=== PATIENT | female | born 1935 | race Caucasian/White ===

== ENCOUNTER 2017-07-26 21:10 | Observation (INO) ==
[2017-07-26] MEDS ORDERED: IOPAMIDOL 100 ML BOTTLE IV ONE (21:11)
[2017-07-26] MEDS ORDERED: ASPIRIN 81 MG TAB.CHEW ONE (21:20)
[2017-07-26] MEDS ORDERED: ASPIRIN 81 MG TAB.CHEW CHEWED ONE (21:21)
--- NOTE | 2017-07-26 23:27 | Internal Med History&Physical ---
Medical - H&P: HPI Patient information: Note initiated : 07/26/17 at 11:26 pm Service Date, if different from initiated Date: [] Patient: Sol Mclean a 81 y/o F admitted on for stroke symptoms. Chief Complaint: [] History of present illness: Ms. Mclean is a 81 year old Female with h/o dementia, presents to the ED today for evaluation of weakness. The patient presented to the ED twice today. The first time the patient presentedit was noticed that she was weak and was not able to move her legs very well. She had elevated blood pressure was treated for same. Prescribed lisinopril. Head CT done was negative, labs unremarkable.nihh score then was 3. by the time of evaluation in the ED patient's symptoms are nearly resolved. Patient was sent home The patient's brought the patient back in again, for confusion, aphasia , left facial droop, weakness in the left hand left leg. NIH score was 5 according to the ED documentation. patient was given aspirin, code stroke was not activated by the physician in the ED. CT angiogram was done of the head of the neck which was interpreted as negative. I do not have the official reports. The patient symptoms started to resolve, her strength in the left extremities came back. She was able to speak again. Given that this was the second episode today the patient was admitted to the hospital for further monitoring. On admission the night score seems to be back to 3. The patient has a history of dementia, she notes that she was not feelingell and weak and therefore was brought to the emergency. Does not know what happened or what she is being admitted or treated for. The patient's has already left the hospital. The patient denies any headache, vision changes or diplopia, changes in hearing , difficulty in swallowing, no neck pain and back pain, no chest pain palpitations, no cough no shortness of breath, no abdominal pain no nausea no vomiting, no gallbladder symptoms, no joint pains and no skin rashes or psychiatric complaints Labs EKG chest x-ray and head CT reports reviewed, All systems: reviewed and no additional remarkable complaints except as stated ( as per HPI) Medical - H&P: PMH Medical history: Medical History Influenza (Acute) Sinusitis (Acute) dementia Pertinent family history: nable to get a reliable history Social history: lives with , denies smoking alcohol or substance abuse Medical - H&P: Meds Home Medications Medication Instructions Recorded Confirmed Type Aspirin [Lo-Dose Aspirin EC] 81 mg PO HS 06/14/16 07/26/17 History Calcium Carbonate [Calcium] 600 mg PO TID 06/14/16 07/26/17 History Donepezil [Aricept] 10 mg PO HS 06/14/16 07/26/17 History Memantine [Namenda] 10 mg PO BID 06/14/16 07/26/17 History Multivitamin [Men's Multi-Vitamin] 1 each PO DAILY 06/14/16 07/26/17 History Cyanocobalamin (Vitamin B-12) 2,500 mcg PO DAILY 07/26/17 07/26/17 History [Vitamin B-12] Lisinopril [Zestril] 10 mg PO DAILY #30 tab 07/26/17 07/26/17 Rx Meloxicam [Mobic] 7.5 mg PO DAILY 07/26/17 07/26/17 History [place]-3/Dha/Epa/Fish Oil [Fish Oil 1 each PO DAILY 07/26/17 07/26/17 History 1,000 mg Softgel] Vitamin D3 5,000 unit PO DAILY 07/26/17 07/26/17 History Allergies Allergy/AdvReac Type Severity Reaction Status Date / Time No Known Drug Allergies Allergy Verified 07/26/17 21:16 Medical - H&P: Exam - Constitutional Vitals: Temp Pulse Resp BP Pulse Ox 98.4 F 76 18 154/81 100 07/26/17 21:10 07/26/17 22:32 07/26/17 22:32 07/26/17 22:32 07/26/17 22:32 Exam: GENERAL: The patient is a well-developed, well-nourished in no apparent distress. Is alert and oriented x2. VITAL SIGNS: Reviewed and as noted elsewhere. HEENT: Head is normocephalic and atraumatic. Extraocular muscles are intact. Pupils are equal, round, and reactive to light. Nares appeared normal. Mouth appears any without lesions. Mucous membranes are moist. NECK: Normal to inspection, Supple, No lymphadenopathy or thyromegaly. LUNGS: Air entry equal on both sides, no wheezing, crackles or rhonchi noted. No accessory muscles of respiration HEART: Regular rate and rhythm normal, S1 and S2 heard, no Gallop, S3 or Rub Noted, No Gross murmur heard. ABDOMEN: Soft, nontender, and nondistended. Positive bowel sounds. No hepatosplenomegaly was noted. EXTREMITIES: No cyanosis, clubbing, rash, lesions or edema. NEUROLOGIC: mild 7th nerve paresis, (left side ), rest of CN normal, strength 5/ 5 joe upper extremities, and lower extremities, sensations equal on both sides, no visual field defects, no aphasia, patient reflex ++ both upper and lower extremities, babinski is eqvivocal bilaterally. PSYCHIATRIC: Normal affect, Normal Mood. Appropriate Behavior. SKIN: No ulceration or wounds noted, No jaundice, No rash noted. Medical - H&P: Reslt - EKG Data -: EKG Reviewed by Myself (sinus, left axis, lafb, poor r wave progression, qs pattern ant lead) Medical - H&P: A/P - Narrative A/P Narrative: A/P TIA Hypertension Dementia Plan monitor on tele neurochecks q4h pt strength comig back slowly, motor systems back to normal, mild facial remaining. start on plavix, and statin, pt has been takin asa 81 daily will switch to statin check a1c, tsh and lipid profile. await reports of CTA head and neck get echo in AM OT/PT/ST eval continue home medications. ok to let bp run high, permissive HTN in lieu of tia/ cva Full code for now Cardiac diet DVT hep sq
[2017-07-26] MEDS ORDERED: CLOPIDOGREL 75 MG TABLET PO SCH (23:30)
[2017-07-26] MEDS ORDERED: HYDROcodone/APAP 5/325MG TABLET PO PRN (23:55)
[2017-07-26] MEDS ORDERED: ONDANSETRON 4 MG/2 ML VIAL IV PRN (23:55)
[2017-07-26] MEDS ORDERED: ACETAMINOPHEN 325 MG TABLET PO PRN (23:55)
[2017-07-26] MEDS ORDERED: NALOXONE HCL 0.4 MG/ML VIAL IV PRN (23:55)
[2017-07-27] MEDS ORDERED: ATORVASTATIN 40 MG TABLET PO SCH ×3 (00:32→21:00)
[2017-07-27 06:48] LABS: Basophils # (Auto) 0 K/mcL (0.0-0.3); Basophils % (Auto) 0.7 % (0.0-2.0); Eosinophils # (Auto) 0.2 K/mcL (0.0-0.7); Eosinophils % (Auto) 3.3 % (0.0-7.0); Granulocytes % (Auto) 73.6 % (38.0-78.0); Lymphocytes # (Auto) 1.1 K/mcL (1.5-4.8); Lymphocytes % (Auto) 15.1 % (15.5-49.0); Mean Cell Volume 90.8 fL (80.0-100.0); Mean Corpuscular HGB Conc 34.3 g/dL (31.0-36.0); Mean Corpuscular Hemoglobin 31.1 pg (26.0-34.0); Monocytes # (Auto) 0.5 K/mcL (0.1-0.9); Monocytes % (Auto) 7.3 % (1.0-12.0); Platelet Count 193 K/mcL (140-440); RBC 3.69 M/mcL (4.00-5.20); Red Cell Distribution Width 13.2 % (11.5-14.5)
--- NOTE | 2017-07-27 07:08 | Emergency Department Note ---
Neuro HPI - General Chief Complaint: Stroke Symptoms Stated Complaint: stroke symptoms Time Seen by Provider: 07/26/17 21:13 Source: patient Mode of arrival: wheelchair Limitations: no limitations - History of Present Illness HPI Narrative: This patient was seen earlier in the day for what seemed to be some TIA symptoms although she is extremely difficult to evaluate due to dementia. She had a spell out shopping with her was described as dizziness and general weakness. In the emergency room at that time she may have had a slight left facial droop but all other muscle testing seemed quite strong. Her speech also seemed normal. Although it is a little bit hard to evaluate with her dementia. It was clear from nurses interviewing the that he was having a lot of caregiver fatigue and social service was consulted at that time. Her initial CT scan workup was negative. However she did have very high blood pressure and we treated that with 2 and half milligrams of IV Vasotec and then 10 mg of p.o. lisinopril. Her blood pressure came down from over 200 to 160 systolic at discharge. She was discharged home but seemed to continue to have some general weakness and the was concerned. The nurse who cared for the patient here in the emergency room is also quite concerned and was on the phone talking the . He apparently decided to bring the patient back to the emergency room. Indeed on arrival emergency room the patient seem to have more pronounced left facial droop though that resolved within about 10 minutes. Again her complete neurologic testing for strength was normal in the upper and lower extremities. Her speech may have been slightly slurred initially but resolved and was back to normal. - Related Data Home Medications: Home Medications Medication Instructions Recorded Confirmed Aspirin [Lo-Dose Aspirin EC] 81 mg PO HS 06/14/16 07/26/17 Calcium Carbonate [Calcium] 600 mg PO TID 06/14/16 07/26/17 Donepezil [Aricept] 10 mg PO HS 06/14/16 07/26/17 Memantine [Namenda] 10 mg PO BID 06/14/16 07/26/17 Multivitamin [Men's Multi-Vitamin] 1 each PO DAILY 06/14/16 07/26/17 Cyanocobalamin (Vitamin B-12) 2,500 mcg PO DAILY 07/26/17 07/26/17 [Vitamin B-12] Meloxicam [Mobic] 7.5 mg PO DAILY 07/26/17 07/26/17 [place]-3/Dha/Epa/Fish Oil [Fish Oil 1 each PO DAILY 07/26/17 07/26/17 1,000 mg Softgel] Vitamin D3 5,000 unit PO DAILY 07/26/17 07/26/17 Previous Rx's Medication Instructions Recorded Lisinopril [Zestril] 10 mg PO DAILY #30 tab 07/26/17 Allergies/Adverse Reactions: Allergies Allergy/AdvReac Type Severity Reaction Status Date / Time No Known Drug Allergies Allergy Verified 07/26/17 21:16 Review of Systems All systems ED: reviewed and negative except as stated. Past Medical History - Past Medical History Medical history: Reports: dementia - Social History smoking status: Never smoker Physical Exam Limitations: no limitations General appearance: alert Head: atraumatic Eye: Present: normal appearance ENT: normal exam Neck: Present: normal inspection Chest: Present: normal inspection Respiratory: Present: normal lung sounds bilaterally Cardiovascular: Present: regular rate, normal rhythm, normal heart sounds Abdominal: Present: soft. Absent: distention, tenderness Neurological: Present: alert Cranial nerves: facial palsy (VII): Abnormal Left Motor strength - LUE: 5/5 Motor strength - RUE: 5/5 Motor strength - LLE: 5/5 Motor strength - RLE: 5/5 Psychiatric: Present: normal affect, normal mood Skin: Present: warm, dry Course Vital Signs Temperature 98.4 F 07/26/17 21:10 Pulse Rate 97 H 07/26/17 21:10 Respiratory Rate 20 07/26/17 21:10 Blood Pressure 170/130 07/26/17 21:10 Pulse Oximetry (%) 97 07/26/17 21:10 Temperature 98.2 F 07/27/17 03:55 Pulse Rate 67 07/27/17 03:55 Respiratory Rate 20 07/27/17 03:55 Blood Pressure 185/79 07/27/17 03:55 Pulse Oximetry (%) 98 07/27/17 03:55 Neuro Symptoms/Deficit - MDM Narrative Medical decision making narrative: We went ahead and did a CTA of head and neck that was completely normal with no signs of any stenosis or clot anywhere. Patient was then admitted by Dr. Godfrey to the hospital for observation given that she has had most likely a TIA. She does take a baby aspirin a day but we gave her the full dose aspirin. I did discuss with Dr. Godfrey the possibility of starting her on Plavix and will leave that up to him. She also does not take a statin drug. On admission to the hospital the patient was neurologically resolved and back to baseline. - Lab Data Lab results reviewed: Yes I reviewed the patient's lab results. Result diagrams: 07/27/17 04:20 07/27/17 04:20 - Radiology Data Radiology results reviewed: Yes I reviewed the patient's radiology results. Disposition Pt seen by ORIGINATION SPECIALIST/PA only: No Clinical Impression: TIA (transient ischemic attack) Disposition: Xfer As Inpt ([facility]) Condition: Fair
[2017-07-27 07:09] LABS: ALT/SGPT 14 U/l (0-40); Albumin 3.6 gm/dL (3.2-5.2); Albumin/Globulin Ratio 1.8 (1.0-2.3); Alkaline Phosphatase 66 U/L (39-117); Bilirubin,Direct < 0.2 mg/dL (0.0-0.3); Blood Urea Nitrogen 17 mg/dl (8-23); Gamma Glutamyl Transpeptidase 14 U/L (5-36); Uric Acid 4.4 mg/dL (2.5-8.0)
[2017-07-27] MEDS: 0.9 % SODIUM CHLORIDE 10 ML SYRINGE IV SCH ×3 (07:10→21:04)
[2017-07-27 07:27] LABS: HDL Cholesterol 67 mg/dl (>40); LDL Cholesterol,Calculated 103 mg/dl (SEE CHART)
--- NOTE | 2017-07-27 08:30 | Cat Scan Report ---
History: Stroke with left facial droop Findings: Nonionic contrast was injected intravenously. Arterial phase images were acquired. Sagittal, coronal and MIPS images were then created. There are densely calcified plaques in the supraclinoid portions of both internal carotids. Greater than 70% stenoses are present in both of these vessels, left worse than right. There is blood flow getting beyond the stenosis into normal anterior and middle cerebral arteries. The vertebral arteries are normal. The right is dominant. Posterior fossa circulation is normal. There is no vascular occlusion or thrombus within the intracranial vessels. No aneurysm or vascular malformation are present. There is a 3 mm old lacunar infarct in the head of the right caudate nucleus. This is better seen on today's study than on the prior exams. No other infarct is detected. There is a nonspecific periventricular calcification of the right frontal lobe. This does not enhance and there is no surrounding edema or inflammation. 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 Small old lacunar infarct in the head of the right caudate nucleus Interpreted and Authenticated by: Felix Silver 07/27/17
--- NOTE | 2017-07-27 08:37 | Cat Scan Report ---
History: Stroke with left facial droop Findings: Following injection of intravenous nonionic contrast, arterial phase images were acquired from the aortic arch through the igiugig of [place]. Sagittal, coronal, MIPS and 3-D volume rendered images were created. The aortic arch is normal in caliber. There is a moderate amount of plaque in the arch but there is no aneurysm or dissection. The innominate artery is normal. There is a large plaque at the bifurcation of the innominate artery into the right subclavian and right common carotid. This is causing a 75% stenosis at the origin of the right common carotid. The left common carotid is normal. The left vertebral artery arises from the aortic arch just proximal to the subclavian. There is plaque formation at this level causing 50% stenosis. There is no stenosis of the left subclavian artery. Small amount of plaque formation is present in the carotid bifurcation bilaterally. This is not causing stenosis. The right vertebral artery is normal. There is no arterial dissection or thrombosis within the neck or thoracic inlet. The distal portions of both internal carotids are very tortuous. There is advanced disc degeneration and arthritis in the cervical spine with severe disc space narrowing at C5-6 and C6-7 and moderate narrowing at C4-5. There is 3 mm grade 1 spondylolisthesis at C4-5 due to advanced arthritis in the facets. There is a posterior bulge at this level. 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 Less than 50% stenosis at the origin of the left vertebral artery Interpreted and Authenticated by: Felix Silver 07/27/17
--- NOTE | 2017-07-27 08:39 | XRay Report ---
HISTORY: Reason for Exam:tia FINDINGS: The lungs are clear. The heart size and pulmonary vasculature are normal. Mediastinum, diamond and pleura are normal. There are calcifications in the costochondral cartilage which mimic small lung nodules or granulomata. There has been no significant change since 04/23/13. IMPRESSION: Normal chest Interpreted and Authenticated by: Felix Silver 07/27/17
[2017-07-27] MEDS ORDERED: VITAMIN D3 5,000 UNIT CAPSULE PO SCH (09:00)
[2017-07-27] MEDS ORDERED: NON FORMULARY MEDICATION 1 DOSE MISCELL (Omega-3/Dha/Epa/Fish Oil [Fish Oil 1,000 Mg Softg PO SCH (09:00)
[2017-07-27] MEDS ORDERED: [UNRECOGNIZED DRUG - OTHER] PO SCH (09:00)
[2017-07-27] MEDS ORDERED: MULTIVITAMIN PO SCH (09:00)
[2017-07-27] MEDS ORDERED: LISINOPRIL 10 MG TABLET PO SCH (09:00)
[2017-07-27] MEDS ORDERED: CYANOCOBALAMIN PO SCH (09:00)
[2017-07-27] MEDS ORDERED: CALCIUM (OYSTER SHELL) 500 MG TABLET PO SCH (09:00)
[2017-07-27] MEDS ORDERED: MEMANTINE 10 MG TABLET PO SCH (09:00)
[2017-07-27 09:58] LABS: Estimated Average Glucose(eAG) 100 mg/dL; Hemoglobin A1C 5.1 % HGB (4.0-6.0)
[2017-07-27] MEDS: CYANOCOBALAMIN (VITAMIN B-12) 500 MCG TABLET PO SCH (10:10)
[2017-07-27] MEDS: CALCIUM (OYSTER SHELL) 500 MG TABLET PO SCH ×3 (10:10→21:01)
[2017-07-27] MEDS: HEPARIN 5,000 UNIT/ML VIAL SQ SCH ×2 (10:10→21:03)
[2017-07-27] MEDS: MULTIVIT,THER IRON,CA,FA & MIN 1 TABLET PO SCH (10:10)
[2017-07-27] MEDS: CLOPIDOGREL 75 MG TABLET PO SCH (10:10)
[2017-07-27] MEDS: FISH OIL 1,000 MG CAPSULE PO SCH (10:12)
[2017-07-27] MEDS: MEMANTINE 10 MG TABLET PO SCH ×2 (10:12→21:02)
[2017-07-27] MEDS: LISINOPRIL 10 MG TABLET PO SCH (10:13)
[2017-07-27] MEDS: VITAMIN D3 5,000 UNIT CAPSULE PO SCH (10:13)
--- NOTE | 2017-07-27 20:27 | Internal Med Progress Note ---
Medical - PN: Subj Patient information: Note initiated : 07/27/17 at 8:15 pm Service Date, if different from initiated Date: [] Patient: Sol Mclean 81 y/o F admitted on 07/26/17 for Stroke Symptoms /TIA. Chief Complaint: [] Interval history: Ms. Mclean is a 81 year old Female with h/o dementia, presents to the ED today for evaluation of weakness. The patient presented to the ED twice today. The first time the patient presentedit was noticed that she was weak and was not able to move her legs very well. She had elevated blood pressure was treated for same. Prescribed lisinopril. Head CT done was negative, labs unremarkable.nihh score then was 3. by the time of evaluation in the ED patient's symptoms are nearly resolved. Patient was sent home The patient's brought the patient back in again, for confusion, aphasia , left facial droop, weakness in the left hand left leg. NIH score was 5 according to the ED documentation. patient was given aspirin, code stroke was not activated by the physician in the ED. CT angiogram was done of the head of the neck which was interpreted as negative. I do not have the official reports. The patient symptoms started to resolve, her strength in the left extremities came back. She was able to speak again. Given that this was the second episode today the patient was admitted to the hospital for further monitoring. On admission the night score seems to be back to 3. The patient has a history of dementia, she notes that she was not feelingell and weak and therefore was brought to the emergency. Does not know what happened or what she is being admitted or treated for. The patient's has already left the hospital. The patient denies any headache, vision changes or diplopia, changes in hearing , difficulty in swallowing, no neck pain and back pain, no chest pain palpitations, no cough no shortness of breath, no abdominal pain no nausea no vomiting, no gallbladder symptoms, no joint pains and no skin rashes or psychiatric complaints Labs EKG chest x-ray and head CT reports reviewed, July 27 Pt seen examined no acute overnight issues, pt tolerating po diet well, her NIH score was 3 this AM and had no recurring neurological deficits, she seemed back to baseline, only a mild left facial droop The patient and son by the bed side reviewed findings with them regarding the CTA neck and head report which shows severe and critical stenosis of joe ICA intracranially, in contradiction to the night hawk read, I verified this with our radiologist. Pertinent ROS: Denies headache, dizziness Denies chest pain, palpitations Denies cough or shortness of breath Denies abdominal pain, nausea or vomiting. - Constitutional Vitals: Vital Signs Temp Pulse Resp BP Pulse Ox 98.0 F 67 16 156/61 99 07/27/17 16:04 07/27/17 03:55 07/27/17 16:04 07/27/17 16:04 07/27/17 16:04 Period Temp Pulse Resp BP Sys/Bowen Pulse Ox Last 24 Hr 97.7 F-99.2 F 67-97 16-21 137-185/57-130 95-100 Intake and Output 07/27/17 07/27/17 07/27/17 05:59 13:59 21:59 Intake Total 240 / 240 640 / 640 240 / 240 Output Total 575 / 575 385 / 385 200 / 200 Balance -335 / -335 255 / 255 40 / 40 Weight 92 lb 8 oz Intake & Output: Intake & Output 07/27/17 07/27/17 07/27/17 05:59 13:59 21:59 Intake Total 240 / 240 640 / 640 240 / 240 Output Total 575 / 575 385 / 385 200 / 200 Balance -335 / -335 255 / 255 40 / 40 Weight 92 lb 8 oz Intake: Oral 240 / 240 640 / 640 GI Tube Flush 240 / 240 Output: Void Amount 575 / 575 385 / 385 200 / 200 Other: Meal Lunch Percent of Meal Consumed 100% Feeding Ability Assist with Tray Set Up # Voids 1 Exam: Constitutional; Afebrile, cooperative, alert, not in distress. Eyes- No icterus, , No periorbital swelling Ears- Ext ear normal, hearing normal to conversation. Neck- Midline trachea, supple Respiratory system: Air Entry equal on both sides, No crackles or wheezing, no rhonchi. CVS- Rate rhythm regular, S1,S2 heard, no gallop, no rub. Abdomen- Soft nontender abdomen, no organomegaly, no tenderness, no guarding or rigidity, [employer]- AOOx3, moving all extremities, no gross focal deficit noted. Left facial weakness ,mild. Medical - PN: Obj Da - Labs CBC & Chem 7: 07/27/17 04:20 07/27/17 04:20 Labs: Abnormal Lab Results 07/27/17 07/27/17 07/27/17 04:20 04:20 04:20 RBC 3.69 L Hgb 11.5 L Hct 33.5 L Lymph % (Auto) 15.1 L Lymph # (Auto) 1.1 L Total Protein 5.6 L Globulin 2.0 L LDL Cholesterol, Calc 103 H Meds: Medications Acetaminophen (Tylenol) 650 mg PO Q6HP PRN PRN Reason: PAIN/FEVER > 101 Hydrocodone Bitart/Acetaminophen ([place] 5/325mg) 1 tab PO Q4HP PRN PRN Reason: Severe Pain Atorvastatin Calcium (Lipitor) 40 mg PO HS [facility] Calcium Carbonate/Glycine (Oscal) 500 mg PO TID [facility] Last Admin: 07/27/17 15:53 Dose: 500 mg Clopidogrel Bisulfate (Plavix) 75 mg PO DAILY [facility] Last Admin: 07/27/17 10:10 Dose: 75 mg Cyanocobalamin (Vitamin B-12) 2,500 mcg PO DAILY [facility] Last Admin: 07/27/17 10:10 Dose: 2,500 mcg Donepezil HCl (Aricept) 10 mg PO HS [facility] Fish Oil (Fish Oil) 1,000 mg PO DAILY [facility] Last Admin: 07/27/17 10:12 Dose: 1,000 mg Heparin Sodium (Porcine) (Heparin) 5,000 unit SQ Q12 [facility] Last Admin: 07/27/17 10:10 Dose: 5,000 unit Iron Carb/Multivit/[place]/Folic Acid (Multivitamin W/Minerals) 1 tab PO DAILY [facility] Last Admin: 07/27/17 10:10 Dose: 1 tab Lisinopril (Zestril) 10 mg PO DAILY [facility] Last Admin: 07/27/17 10:13 Dose: 10 mg Memantine (Namenda) 10 mg PO BID [facility] Last Admin: 07/27/17 10:12 Dose: 10 mg Naloxone HCl (Narcan) 0.1 mg IV Q2MIN PRN PRN Reason: Opiate Reversal Ondansetron HCl (Zofran) 4 mg IV Q4HP PRN PRN Reason: Nausea And Vomiting Sodium Chloride (Saline Flush) 10 ml IV Q8 [facility] Last Admin: 07/27/17 15:53 Dose: 10 ml Vitamin D (Vitamin D3) 5,000 unit PO DAILY [facility] Last Admin: 07/27/17 10:13 Dose: 5,000 unit Medical - PN: A/P - Time Spent With Patient Total time spent is greater than 50% in coordination of care (as documented) at patient's floor/unit and/or counseling patient: - Narrative A/P Narrative: A/P TIA/ cva Hypertension Dementia Plan monitor on tele neurochecks q4h strength back to baseline, mild facial still on plavix and statin, discussed CT findings with patients family await echo read, anticipate d/c home in AM ref to outpatient vascular surgery in [facility] if patient and family wanting. continue htn meds, bp stable, Full code for now Cardiac diet DVT hep sq Medical - PN: Qual - Stroke Onset of Symptoms Date: 07/27/17 Onset of Symptoms Time: 12:00 Symptom Onset Unknown: Yes - VTE Deep Vein Thrombosis/Pulmonary Embolism Present on Admission: No
[2017-07-27] MEDS ORDERED: NON FORMULARY MEDICATION 1 DOSE MISCELL (Aspirin [Lo-Dose Aspirin Ec] 81 MG) PO SCH (21:00)
[2017-07-27] MEDS ORDERED: DONEPEZIL 10 MG TABLET PO SCH ×2 (21:00)
[2017-07-27] MEDS ORDERED: ATORVASTATIN 20 MG TABLET PO SCH (21:00)
[2017-07-28] MEDS: 0.9 % SODIUM CHLORIDE 10 ML SYRINGE IV SCH ×2 (05:42→07:50)
[2017-07-28 05:46] LABS: Basophils # (Auto) 0 K/mcL (0.0-0.3); Basophils % (Auto) 0.6 % (0.0-2.0); Eosinophils # (Auto) 0.2 K/mcL (0.0-0.7); Eosinophils % (Auto) 3.2 % (0.0-7.0); Lymphocytes # (Auto) 1.3 K/mcL (1.5-4.8); Lymphocytes % (Auto) 20.5 % (15.5-49.0); Mean Cell Volume 90.9 fL (80.0-100.0); Mean Corpuscular HGB Conc 33.8 g/dL (31.0-36.0); Mean Corpuscular Hemoglobin 30.7 pg (26.0-34.0); Monocytes # (Auto) 0.4 K/mcL (0.1-0.9); Monocytes % (Auto) 6.7 % (1.0-12.0); Platelet Count 188 K/mcL (140-440); Red Cell Distribution Width 13.3 % (11.5-14.5)
[2017-07-28 06:22] LABS: ALT/SGPT 12 U/l (0-40); Albumin 3.6 gm/dL (3.2-5.2); Alkaline Phosphatase 63 U/L (39-117); Bilirubin,Direct < 0.2 mg/dL (0.0-0.3); Blood Urea Nitrogen 16 mg/dl (8-23); Gamma Glutamyl Transpeptidase 14 U/L (5-36); Uric Acid 4.1 mg/dL (2.5-8.0)
[2017-07-28] MEDS: HEPARIN 5,000 UNIT/ML VIAL SQ SCH (09:59)
[2017-07-28] MEDS: CLOPIDOGREL 75 MG TABLET PO SCH (10:00)
[2017-07-28] MEDS: MEMANTINE 10 MG TABLET PO SCH (10:00)
[2017-07-28] MEDS: FISH OIL 1,000 MG CAPSULE PO SCH (10:00)
[2017-07-28] MEDS: MULTIVIT,THER IRON,CA,FA & MIN 1 TABLET PO SCH (10:00)
[2017-07-28] MEDS: LISINOPRIL 10 MG TABLET PO SCH (10:00)
[2017-07-28] MEDS: CALCIUM (OYSTER SHELL) 500 MG TABLET PO SCH (10:00)
[2017-07-28] MEDS: CYANOCOBALAMIN (VITAMIN B-12) 500 MCG TABLET PO SCH (10:01)
[2017-07-28] MEDS: VITAMIN D3 5,000 UNIT CAPSULE PO SCH (10:04)
--- NOTE | 2017-07-28 12:08 | Discharge Summary ---
Medical - DS: Prov Patient information: Note initiated : 07/28/17 at 12:02 pm Service Date, if different from initiated Date: [] Patient: Sol Mclean 81 y/o F admitted on 07/26/17 for Stroke Symptoms /TIA. Chief Complaint: [] Date of admission: 07/26/17 23:50 Discharge date: 07/28/17 Primary care physician: Yulissa Renteria Admitting clinician: Shelby Godfrey Consults: 07/26/17 22:54 Consult to Physician [CONS] Stat Comment: Consulting Provider: Shelby Godfrey Reason For Exam: Physician to Consult Discharging clinician: Shelby Godfrey Medical - DS: Meds - Discharge Medications Prescriptions: Atorvastatin [Lipitor] 40 mg PO HS #30 tab Clopidogrel Bisulfate [Plavix] 75 mg PO DAILY #30 tab Active and Home Medications: Home Medications Aspirin [Lo-Dose Aspirin EC] 81 mg PO HS 06/14/16 [History Confirmed 07/26/17 Last Taken Unknown] Calcium Carbonate [Calcium] 600 mg PO TID 06/14/16 [History Confirmed 07/26/17 Last Taken Unknown] Donepezil [Aricept] 10 mg PO HS 06/14/16 [History Confirmed 07/26/17 Last Taken Unknown] Memantine [Namenda] 10 mg PO BID 06/14/16 [History Confirmed 07/26/17 Last Taken Unknown] Multivitamin [Men's Multi-Vitamin] 1 each PO DAILY 06/14/16 [History Confirmed 07/26/17 Last Taken Unknown] Cyanocobalamin (Vitamin B-12) [Vitamin B-12] 2,500 mcg PO DAILY 07/26/17 [ History Confirmed 07/26/17 Last Taken Unknown] Lisinopril [Zestril] 10 mg PO DAILY #30 tab 07/26/17 [Rx Confirmed 07/26/17 Last Taken Unknown] Meloxicam [Mobic] 7.5 mg PO DAILY 07/26/17 [History Confirmed 07/26/17 Last Taken Unknown] Vermilion-3/Dha/Epa/Fish Oil [Fish Oil 1,000 mg Softgel] 1 each PO DAILY 07/26/17 [ History Confirmed 07/26/17 Last Taken Unknown] Vitamin D3 5,000 unit PO DAILY 07/26/17 [History Confirmed 07/26/17 Last Taken Unknown] Medical - DS: Hosp Hospital course: Ms. Mclean is a 81 year old Female with h/o dementia, presents to the ED today for evaluation of weakness. The patient presented to the ED twice . The first time the patient presented it was noticed that she was weak and was not able to move her legs very well. She had elevated blood pressure was treated for same. Prescribed lisinopril. Head CT done was negative, labs unremarkable.nihh score then was 3. by the time of evaluation in the ED patient's symptoms are nearly resolved. Patient was sent home, with prescription for lisinopril for high blood pressure. The patient's brought the patient back in again, for confusion, aphasia , left facial droop, weakness in the left hand left leg. NIH score was 5 according to the ED documentation. patient was given aspirin, code stroke was not activated by the physician in the ED. CT angiogram was done of the head of the neck which was interpreted as negative. I do not have the official reports. The patient symptoms started to resolve, her strength in the left extremities came back. She was able to speak again. Given that this was the second episode today the patient was admitted to the hospital for further monitoring. On admission the night score seems to be back to 3. CVA/ TIA: The patient likely had a CVA, has some mild residual left facial, her motor strength on exam seems normal, but she still needs help with walker, family wants to take her home. She will continue with home Therapy. echo done was neg, CT head neg, CTA head and Neck show significant vascular stenosis, see report. According to the radiologist these many not be amneable for intervention, but we reviewed referral to vascular surgeon / stroke clinic in [place], Pt , son and a daughter who is a nurse will think about it and decide. PCP can arrange referral if the family agrees Pt was on asa treatment prior to this event. Will stop asa, start on clopidogren 75mg once daily, started on atorvastatin 40mg qhs. The patient will be discharge home with home therapy, with family. Discharge diagnosis: CVA - Time Spent with Patient Total time spent providing and/or coordinating discharge services: Greater than 30 minutes Medical - DS: Exam - Constitutional Vitals: Vital Signs Temp Pulse Resp BP Pulse Ox 07/28/17 11:26 98.8 F 14 139/55 98 07/28/17 07:45 96 07/28/17 06:33 98.0 F 16 178/68 97 07/28/17 04:00 97.2 F 68 16 196/73 97 07/28/17 00:03 97.8 F 65 16 185/72 96 07/27/17 20:00 98.5 F 67 14 165/68 97 07/27/17 16:04 98.0 F 16 156/61 99 Intake and Output 07/27/17 07/28/17 07/28/17 21:59 05:59 13:59 Intake Total 420 / 420 100 / 100 240 / 240 Output Total 200 / 200 200 / 200 Balance 220 / 220 100 / 100 40 / 40 Intake: Oral 180 / 180 100 / 100 240 / 240 GI Tube Flush 240 / 240 Output: Void Amount 200 / 200 200 / 200 Other: Meal Dinner Breakfast Percent of Meal Consumed 90 75% Feeding Ability Assist with Tray Set Up Independent Stool Size Small Stool Color Brown Stool Consistency Formed # Voids 1 1 # Bowel Movements 1 Weight 96 lb Additional comments: Constitutional; Afebrile, cooperative, alert, not in distress. Eyes- No icterus, , No periorbital swelling Ears- Ext ear normal, hearing normal to conversation. Neck- Midline trachea, supple Respiratory system: Air Entry equal on both sides, No crackles or wheezing, no rhonchi. CVS- Rate rhythm regular, S1,S2 heard, no gallop, no rub. Abdomen- Soft nontender abdomen, no organomegaly, no tenderness, no guarding or rigidity, STAKER SURVEYING- AOOx3, moving all extremities, no gross focal deficit noted. Mild facial left side Medical - DS: Data Procedures and tests throughout hospitalization: Laboratory Tests 07/27/17 04:20 Hemoglobin A1c 5.1 Cholesterol 186 LDL Cholesterol, Calc 103 H Non-HDL Cholesterol 119 HDL Cholesterol 67 TSH 3.48 Echo Normal left ventricle, normal lv wall thickness mild pulm htn mild to moderate AI CT head Impression: Stable age-related degenerative changes and no evidence of acute infarct or hemorrhage Dr. Park was called with results CTA Head and NECK History: Stroke with left facial droop Findings: Following injection of intravenous nonionic contrast, arterial phase images were acquired from the aortic arch through the native of Renteria. Sagittal, coronal, MIPS and 3-D volume rendered images were created. The aortic arch is normal in caliber. There is a moderate amount of plaque in the arch but there is no aneurysm or dissection. The innominate artery is normal. There is a large plaque at the bifurcation of the innominate artery into the right subclavian and right common carotid. This is causing a 75% stenosis at the origin of the right common carotid. The left common carotid is normal. The left vertebral artery arises from the aortic arch just proximal to the subclavian. There is plaque formation at this level causing 50% stenosis. There is no stenosis of the left subclavian artery. Small amount of plaque formation is present in the carotid bifurcation bilaterally. This is not causing stenosis. The right vertebral artery is normal. There is no arterial dissection or thrombosis within the neck or thoracic inlet. The distal portions of both internal carotids are very tortuous. There is advanced disc degeneration and arthritis in the cervical spine with severe disc space narrowing at C5-6 and C6-7 and moderate narrowing at C4-5. There is 3 mm grade 1 spondylolisthesis at C4-5 due to advanced arthritis in the facets. There is a posterior bulge at this level. 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 Less than 50% stenosis at the origin of the left vertebral artery Chest X ray IMPRESSION: Normal chest Labs on day of discharge: Labs from last 24 hours 07/28/17 07/28/17 04:10 04:10 WBC 6.3 RBC 3.90 L Hgb 12.0 Hct 35.4 L MCV 90.9 MCH 30.7 MCHC 33.8 RDW 13.3 Plt Count 188 MPV 8.1 Gran % 69.0 Lymph % (Auto) 20.5 Henry % (Auto) 6.7 Eos % (Auto) 3.2 Baso % (Auto) 0.6 Gran # 4.3 Lymph # (Auto) 1.3 L Henry # (Auto) 0.4 Eos # (Auto) 0.2 Baso # (Auto) 0 Sodium 143 Potassium 3.9 Chloride 105 Carbon Dioxide 28 Anion Gap 10.0 BUN 16 Creatinine 0.6 GFR Calculation 84 Glucose 94 Uric Acid 4.1 Calcium 8.9 Phosphorus 3.1 Magnesium 2.1 Total Bilirubin 0.2 Direct Bilirubin < 0.2 GGT 14 AST 18 ALT 12 Alkaline Phosphatase 63 Lactate Dehydrogenase 170 Total Protein 5.4 L Albumin 3.6 Globulin 1.8 L Albumin/Globulin Ratio 2.0 Triglycerides 87 Medical - DS: A/P - Patient/Caregiver Discharge Instructions Activity: as per physical therapy, increase activity as tolerated Diet: Cardiac Additional Instructions: Stop aspirin DO not take NSAIDS as it can increase your risk of bleeding, (aleve, motrin, mobic, etc) Use Tylenol for pain issues. I have started you on Clopidogrel 75mg once daily and Atorvastatin 40mg qhs Follow up with PCP in 1 week GO to the ER if new onset weakness, fever, chest pain or any other acute concern. Talk to your regular doctor regarding referral to the Vascular surgeon at [place] for evaluation of the stenosis of the carotid arteries, and if patient is a candidate for any intervention. - Follow up Plan Follow up with: Yulissa Renteria MD [Primary Care Provider] - 08/02/17 10:30 am Disposition: Home Health Service Prognosis: Fair Rehab Potential: Fair I certify that the patient requires SNF services: No Overall status at discharge: patient is progressing back to baseline Medical - DS: Qual - VTE Deep Vein Thrombosis/Pulmonary Embolism Present on Admission: No
== END 2017-07-28 14:00 | disposition home health service (06) ==
LOC: MEDSUR 21:10 → ED 21:10 → MEDSUR 23:59 → ICU 07-27 05:43
PROVIDERS: ADMIT Internal Medicine; ATTEND Internal Medicine